=== PATIENT | female | born 1940 | race Hispanic/Latino ===

== ENCOUNTER 2019-08-31 16:52 | Emergency (ER) | payer OTHER, MEDICARE ==
[2019-08-31 17:27] LABS: BASOPHILS % (AUTO) 0.4 % (0.0-5.0); EOSINOPHILS % (AUTO) 5.1 % (0.0-8.0); HEMATOCRIT 30.4 % (36-48); LYMPHOCYTES % (AUTO) 18.4 % (21.0-51.0); MEAN CORPUSCULAR HEMOGLOBIN 27.1 pg (27.0-33.0); MEAN CORPUSCULAR HGB CONC 31.6 g/dL (32.0-36.0); MEAN CORPUSCULAR VOLUME 85.9 fL (79-99); MONOCYTES % (AUTO) 6.3 % (3.0-13.0); NEUTROPHILS % (AUTO) 68.9 % (40.0-77.0); PLATELET COUNT (AUTO) 386 K/uL (130-400); RED BLOOD CELL COUNT(AUTO) 3.54 MIL/uL (4.00-5.50); RED CELL DISTRIBUTION WIDTH 14.5 % (11.0-15.5); WHITE BLOOD COUNT (AUTO) 7.5 K/uL (4.8-10.8)
[2019-08-31 17:33] LABS: INR 1.12 (0.85-1.15); PARTIAL THROMBOPLASTIN TIME 25.8 SEC (26.3-35.5)
[2019-08-31 17:40] LABS: CREATININE 0.8 mg/dL (0.5-1.5); POTASSIUM 3.5 mmol/L (3.5-5.1)
[2019-08-31 17:45] LABS: ALBUMIN 2.6 g/dL (3.5-5.0); BILIRUBIN,TOTAL 0.3 mg/dL (0.2-1.0); TOTAL PROTEIN, SERUM 6.2 g/dL (6.0-8.3)
[2019-08-31 18:06] LABS: CREATINE KINASE, TOTAL 46 U/L (21-232); TROPONIN I < 0.04 ng/mL (0.00-0.06)
[2019-08-31 18:26] LABS: MYOGLOBIN 45 ng/mL (10-92)
== END 2019-08-31 21:51 | disposition home or self-care (01) ==
LOC: EDH 16:52
DX: U07.1 COVID-19 (principal); I95.89 Other hypotension; T46.5X5A Adverse effect of other antihypertensive drugs, initial encounter; R42 Dizziness and giddiness; E11.9 Type 2 diabetes mellitus without complications; I10 Essential (primary) hypertension; E78.5 Hyperlipidemia, unspecified; Y92.89 Other specified places as the place of occurrence of the external cause
CPT/HCPCS: 36415; 71045; 80053; 82550; 83874; 84484; 85025; 85610; 85730; 93005; 99285; U0003

== ENCOUNTER 2020-12-20 12:30 | Emergency (ER) | payer OTHER, MEDICARE ==
[~2020-12-20] VITALS: Ht 157.5 cm; Wt 65.3 kg
[2020-12-20 12:31] VITALS: BP 120/58
[2020-12-20] MEDS ORDERED: ACETAMINOPHEN 500 MG TABLET PO ONE (13:00)
[2020-12-20 13:23] LABS: BASOPHILS % (AUTO) 0.3 % (0.0-5.0); EOSINOPHILS % (AUTO) 4.1 % (0.0-8.0); HEMATOCRIT 34.2 % (36-48); MEAN CORPUSCULAR HGB CONC 30.7 g/dL (32.0-36.0); MEAN CORPUSCULAR VOLUME 94.5 fL (79-99); MONOCYTES % (AUTO) 5.8 % (3.0-13.0); NEUTROPHILS % (AUTO) 75.4 % (40.0-77.0); PLATELET COUNT (AUTO) 245 K/uL (130-400); RED BLOOD CELL COUNT(AUTO) 3.62 MIL/uL (4.00-5.50); RED CELL DISTRIBUTION WIDTH 14.4 % (11.0-15.5); WHITE BLOOD COUNT (AUTO) 10.5 K/uL (4.8-10.8)
[2020-12-20 13:35] LABS: CREATININE 0.8 mg/dL (0.5-1.5); POTASSIUM 4.2 mmol/L (3.5-5.1)
[2020-12-20 13:43] LABS: B-TYPE NATRIURETIC PEPTIDE 155 pg/mL (0-100)
[2020-12-20 13:47] LABS: ALBUMIN 3.6 g/dL (3.5-5.0); BILIRUBIN,TOTAL 0.3 mg/dL (0.2-1.0)
[2020-12-20] MEDS ORDERED: ACETAMINOPHEN 500 MG TABLET ONE (14:13)
[2020-12-20] MEDS ORDERED: ACET1TAB25 PO (14:19)
[2020-12-20] MEDS ORDERED: METH4TAB PO (14:19)
[2020-12-20] MEDS ORDERED: IBUP-2070 PO (14:19)
== END 2020-12-20 14:31 | disposition home or self-care (01) ==
LOC: EDH 12:30
DX: R07.89 Other chest pain (principal); E11.9 Type 2 diabetes mellitus without complications; E78.00 Pure hypercholesterolemia, unspecified; I10 Essential (primary) hypertension; I25.10 Atherosclerotic heart disease of native coronary artery without angina pectoris
CPT/HCPCS: 36415; 71045; 80053; 82550; 83880; 84484; 85025; 93005

== ENCOUNTER → 2023-01-31 | Outpatient (CLI) | payer OTHER, MEDICARE ==
[~2023-01-31] MED LIST: ACET-2079 PO; IBUP-2070 PO; METH4TAB PO
== END | disposition home or self-care (01) ==
LOC: RAH 07:05
PROVIDERS: ATTEND Internal Medicine Gastroenterology
DX: R10.13 Epigastric pain (principal); R68.81 Early satiety
CPT/HCPCS: 78264; A9541